=== PATIENT | male | born 1975 | race Caucasian/White ===

== ENCOUNTER → 2017-05-03 | Outpatient (CLI) | payer OTHER ==
--- NOTE | 2017-05-03 12:45 | XR ---
EXAMINATION TYPE: XR ribs LT DATE OF EXAM: 05/03/2017 COMPARISON: NONE HISTORY: Left lower posterior rib pain after fall injury 3 days ago. TECHNIQUE: A frontal and oblique images of the left-sided ribs are obtained FINDINGS: No acute displaced left-sided rib fractures are evident . Visualized left lung is clear. Ov erlying soft tissue is unremarkable. . IMPRESSION: No acute displaced left-sided rib fractures are seen.
== END ==
LOC: RADXRMAIN 12:13
PROVIDERS: ATTEND Family Medicine
DX: R07.81 Pleurodynia (principal)

== ENCOUNTER → 2018-04-27 | Outpatient (CLI) | payer OTHER ==
--- NOTE | 2018-04-28 08:06 | US ---
EXAMINATION TYPE: US carotid duplex BILAT DATE OF EXAM: 04/27/2018 COMPARISON: 12/05/15 carotid ultrasound. CLINICAL HISTORY: R09.89 Bruit Lt Carotid Artery. EXAM MEASUREMENTS: RIGHT: Peak Systolic Velocity (PSV) cm/sec ----- Right CCA: 108.8 ----- Right ICA: 96.8 ----- Right ECA: 128.8 ICA/CCA ratio: 0.9 RIGHT: End Diastole cm/sec ----- Right CCA: 14.2 ----- Right ICA: 29.9 ----- Right ECA: 22.7 LEFT: Peak Systolic Velocity (PSV) cm/sec ----- Left CCA: 149.6 ----- Left ICA: 108.1 ----- Left ECA: 96.9 ICA/CCA ratio: 0.7 LEFT: End Diastole cm/sec ----- Left CCA: 19.5 ----- Left ICA: 32.1 ----- Left ECA: 10.2 VERTEBRALS (direction of flow): Right Vertebral: Antegrade Left Vertebral: Antegrade Rhythm: Normal Grayscale images show no significant focal plaque at carotid bulb level bilaterally. There is more pr ominent increased peak systolic velocity left common carotid artery noted. A more proximal stenosis i s not excluded. IMPRESSION: No hemodynamically significant stenosis in either internal carotid artery. Cannot exclud e more proximal stenosis in the left common carotid artery. Consider CTA or MRA neck/chest follow-up.
== END | disposition home or self-care (01) ==
LOC: RADUSWWP 16:00
PROVIDERS: ATTEND Family Medicine
DX: R09.89 Other specified symptoms and signs involving the circulatory and respiratory systems (principal)
CPT/HCPCS: 93880

== ENCOUNTER → 2020-09-12 | Outpatient (CLI) | payer OTHER ==
[2020-09-12 14:48] LABS: Basophils # (A) 0.1 k/uL (0-0.2); Basophils % (A) 1 %; Eosinophils # (A) 0.2 k/uL (0-0.7); Eosinophils % (A) 3 %; HCT 46.2 % (39.0-53.0); HGB 15.5 gm/dL (13.0-17.5); Lymphocytes % (A) 34 %; MCH 31.2 pg (25.0-35.0); MCHC 33.5 g/dL (31.0-37.0); Monocytes # (A) 0.5 k/uL (0-1.0); Monocytes % (A) 8 %; Neutrophils # (A) 3.1 k/uL (1.3-7.7); Neutrophils % (A) 51 %; Platelet Count 305 k/uL (150-450); RBC 4.97 m/uL (4.30-5.90); RDW 12.5 % (11.5-15.5)
[2020-09-12 20:36] LABS: African American GFR (CKD) 105.6 (60.0-200.0); Albumin 4.5 g/dL (3.80-4.90); Albumin/Globulin Ratio 1.5 (1.60-3.17); Anion Gap 10.7 mmol/L (4.00-12.00); Calcium 9.7 mg/dL (8.7-10.3); Carbon Dioxide 27.3 mmol/L (21.6-31.8); Chol/HDL Ratio 4.16; Non-African American GFR(CKD) 91.1 (60.0-200.0); Potassium 4.1 mmol/L (3.5-5.5); Total Protein 7.5 g/dL (6.2-8.2)
== END | disposition home or self-care (01) ==
LOC: LABWHC1 14:15
PROVIDERS: ATTEND Family Medicine
DX: I10 Essential (primary) hypertension (principal); R00.0 Tachycardia, unspecified
CPT/HCPCS: 36415; 80053; 80061; 84443; 85025

== ENCOUNTER 2022-11-27 10:39 | Emergency (ER) | payer OTHER ==
[2022-11-27 10:45] VITALS: RESP 20; TEMP 98.4
--- NOTE | 2022-11-27 11:27 | ED ---
Skin/Abscess/FB HPI - General Chief complaint: Skin/Abscess/Foreign Body Stated complaint: cat bite - sent from urgent care Time Seen by Provider: 11/27/22 11:06 Source: patient, RN notes reviewed Mode of arrival: ambulatory Limitations: no limitations - History of Present Illness Initial comments: This is a 47-year-old male who presents to the emergency department for a cat bite. He was bitten by a cat approximately 2 weeks ago, and was first evaluated at urgent care. He was put on a ten-day course of 2 different antibiotics, which he just finished today. He cannot recall which antibiotics these were. He was reevaluated at urgent care, and found to have improvement in the redness and swelling of the entire hand, however he developed an abscess right below the middle finger. The provider there was concerned about an infectious tenosynovitis, and sent him to the emergency department for failed outpatient management. Patient states that this seems to have started draining today. It is painful to move the finger and to press on the area. Denies any fevers or chills. Denies any fevers, chills, sore throat, cough, dyspnea, chest pain, palpitations, abdominal pain, nausea, vomiting, diarrhea, back pain, or headaches. MD complaint: abscess/boil Location: R hand - Related Data Home Medications Medication Instructions Recorded Confirmed Losartan Potassium [Cozaar] 100 mg PO DAILY 11/27/22 11/27/22 Metoprolol Succinate (ER) [Toprol 25 mg PO DAILY 11/27/22 11/27/22 XL] amLODIPine [Norvasc] 10 mg PO DAILY 11/27/22 11/27/22 hydroCHLOROthiazide [Hydrodiuril] 25 mg PO DAILY 11/27/22 11/27/22 Previous Rx's Medication Instructions Recorded Amoxic-Pot Clav 875-125Mg 1 tab PO Q12HR 10 Days #20 tab 11/27/22 [Augmentin 875-125] Allergies Allergy/AdvReac Type Severity Reaction Status Date / Time No Known Allergies Allergy Verified 11/27/22 13:36 Review of Systems ROS Statement: Those systems with pertinent positive or pertinent negative responses have been documented in the HPI. ROS Other: All systems not noted in ROS Statement are negative. Past Medical History Past Medical History: Hypertension History of Any Multi-Drug Resistant Organisms: None Reported Past Surgical History: No Surgical Hx Reported Past Psychological History: No Psychological Hx Reported Smoking Status: Never smoker Past Alcohol Use History: Occasional Past Drug Use History: None Reported General Exam Limitations: no limitations General appearance: alert, in no apparent distress Head exam: Present: atraumatic, normocephalic, normal inspection Respiratory exam: Present: normal lung sounds bilaterally. Absent: respiratory distress, wheezes, rales, rhonchi, stridor Extremities exam: Present: other (Large palpable erythematous abscess over the right third MCP joint. Tenderness to palpation. Increased heat. There is a pinpoint area of minor purulence.) Neurological exam: Present: alert, oriented X3, CN II-XII intact Psychiatric exam: Present: normal affect, normal mood Course Vital Signs 11/27/22 11/27/22 10:42 15:00 Temperature 98.4 F 98.4 F Pulse Rate 87 80 Respiratory 20 20 Rate Blood Pressure 152/79 148/78 O2 Sat by Pulse 98 98 Oximetry Procedures - Incision & Drainage Consent Obtained: verbal consent Indication: abscess Site: hand Size (cm): 2 Anesthetic Used: lidocaine 1% Amount (mLs): 2 I&D Cleaning Method: Chloroprep Sterile Field Used?: Yes Scalpel Used: #11 Needle Aspiration Performed?: No Irrigation Performed?: No I&D Drainage Obtained: Pus, Blood Culture Obtained?: Yes Medical Decision Making - Medical Decision Making This is a 47-year-old male who presents to the emergency department for a cat bite to the right hand. Was pt. sent in by a medical professional or institution? @ -[facility] Did you speak to anyone other than the patient for history? @ -No Did you review nursing and triage notes? @ -Agree, accurate with regards to the patient's symptoms. Were old charts reviewed? @ -No Differential Diagnosis? @ -Abscess, cyst, trauma, fracture, this is not meant to be an all-inclusive list. X-rays interpreted by me (1pt min.)? @ -My interpretation of the x-ray of the right hand identifies no evidence of acute fractures. The radiologist does not note any subcutaneous gas. What testing was considered but not performed? (CT, X-rays, U/S, labs)? Why? @ -None What meds were considered but not given? Why? @ -I offered pain medication such as ibuprofen or Tylenol, however the patient declined. Did you discuss the management of the patient with other professionals? @ -No Did you reconcile home meds? @ -No Was smoking cessation discussed for >3mins.? @ -No Was critical care preformed (if so, how long)? @ -No Were there social determinants of health that impacted care today? How? (Homeles sness, low income, unemployed, alcoholism, drug addiction, transportation, low edu. Level, literacy, decrease access to med. care, alf, rehab)? @ -No Was there de-escalation of care discussed even if they declined? (Discuss DNR or withdrawal of care, Hospice)? @ -No What co-morbidities impacted this encounter? (DM, HTN, Smoking, COPD, CAD, Cancer, CVA, Hep., AIDS, mental health diagnosis, sleep apnea, morbid obesity)? @ -None Was patient admitted / discharged? @ -Discharged. X-ray of the right hand obtained with my interpretation listed above. I&D was performed on the abscess. There was minor purulence with largely sanguineous fluid removed. Cultures were obtained. Prescription for additional 10 day course of Augmentin provided. Instructed him to continue applying warm compresses and to work out additional drainage as he is able to. Advised ibuprofen and Tylenol as needed for pain relief. Drug Therapy requiring intensive monitoring for toxicity (Heparin, Nitro, Insulin, Cardizem)? @ -None Were any procedures done? @ -Yes, I&D on the abscess. Diagnosis/symptom? @ -Abscess Acute, or Chronic, or Acute on Chronic? @ -Acute Uncomplicated (without systemic symptoms) or Complicated (systemic symptoms)? @ -Uncomplicated Side effects of treatment? @ -Adverse effects to the antibiotics. Exacerbation, Progression, or Severe Exacerbation] @ -Not applicable Poses a threat to life or bodily function? @ -No Diagnosis/symptom? @ -Cat bite Acute, or Chronic, or Acute on Chronic? @ -Acute Uncomplicated (without systemic symptoms) or Complicated (systemic symptoms)? @ -Uncomplicated Side effects of treatment? @ -Adverse effects to the antibiotics. Exacerbation, Progression, or Severe Exacerbation] @ -Not applicable. Poses a threat to life or bodily function? @ -No. Return precautions reviewed in depth, the patient is instructed to return to the emergency department with any new, worsening, or concerning symptoms. Patient verbalized understanding. This case was discussed in detail with the attending ED physician. Presentation, findings, and treatment plan discussed in detail as well. - Lab Data Result diagrams: 11/27/22 12:15 11/27/22 12:15 Lab Results 11/27/22 11/27/22 11/27/22 Range/Units 12:15 12:15 12:15 WBC 7.3 (3.8-10.6) k/uL RBC 4.79 (4.30-5.90) m/uL Hgb 15.3 (13.0-17.5) gm/dL Hct 42.7 (39.0-53.0) % MCV 89.1 (80.0-100.0) fL MCH 31.9 (25.0-35.0) pg MCHC 35.8 (31.0-37.0) g/dL RDW 12.7 (11.5-15.5) % Plt Count 344 (150-450) k/uL MPV 7.6 Neutrophils % 70 % Lymphocytes % 15 % Monocytes % 8 % Eosinophils % 2 % Basophils % 1 % Neutrophils # 5.1 (1.3-7.7) k/uL Lymphocytes # 1.1 (1.0-4.8) k/uL Monocytes # 0.6 (0-1.0) k/uL Eosinophils # 0.2 (0-0.7) k/uL Basophils # 0.1 (0-0.2) k/uL ESR 19 H (0-15) mm/hr Sodium 138 (137-145) mmol/L Potassium 4.3 (3.5-5.1) mmol/L Chloride 102 (98-107) mmol/L Carbon Dioxide 26 (22-30) mmol/L Anion Gap 10 mmol/L BUN 17 (9-20) mg/dL Creatinine 0.93 (0.66-1.25) mg/dL Est GFR (CKD-EPI)AfAm >90 (>60 ml/min/1.73 sqM) Est GFR (CKD-EPI)NonAf >90 (>60 ml/min/1.73 sqM) Glucose 120 H (74-99) mg/dL Plasma Lactic Acid Phan 1.4 (0.7-2.0) mmol/L Calcium 9.2 (8.4-10.2) mg/dL Total Bilirubin 0.8 (0.2-1.3) mg/dL AST 35 (17-59) U/L ALT 45 (4-49) U/L Alkaline Phosphatase 79 (38-126) U/L C-Reactive Protein 0.7 (<1.0) mg/dL Total Protein 8.7 H (6.3-8.2) g/dL Albumin 4.8 (3.5-5.0) g/dL - Radiology Data Radiology results: report reviewed, image reviewed Disposition Clinical Impression: Cat bite, Abscess Disposition: HOME SELF-CARE Instructions (If sedation given, give patient instructions): Animal Bite (ED), Abscess (ED) Additional Instructions: Return to the emergency department with any new, worsening, or concerning symptoms. Take the antibiotic as prescribed for 10 days. Continue to apply warm compresses and work out any additional drainage. Follow up with your primary care provider in 1-2 days. Prescriptions: Amoxic-Pot Clav 875-125Mg [Augmentin 875-125] 1 tab PO Q12HR 10 Days #20 tab Is patient prescribed a controlled substance at d/c from ED?: No Referrals: None,Stated [Primary Care Provider] - 1-2 days
--- NOTE | 2022-11-27 12:07 | XR ---
EXAMINATION TYPE: XR hand complete RT DATE OF EXAM: 11/27/2022 11:35 AM INDICATION: Patient age:Male; 47 years old; Reason for study: Swelling; COMPARISON: None TECHNIQUE: Frontal, lateral and oblique views of the right hand were obtained. FINDINGS: Third digit demonstrates no evidence of radiopaque foreign body. No subcutaneous gas. Hyperdense foci seen along palmar surface of the second digit palmar suspicious for radiopaque foreign body. There i s a opaque dot and the second digit ulnar aspect near the proximal phalanx which is artifactual on al l images. Alignment of the visualized joints. No acute osseous pathology is identified. No evidence of soft tissue swelling. IMPRESSION: 1. No acute osseous pathology. 2. Third digit demonstrate no evidence is no evidence septations gas are or radiopaque foreign body. There are 3 hyperdense foci within the second digit palmar surface which could represent gas identif ied. No subcutaneous gas identified.
[2022-11-27 12:43] LABS: Basophils # (A) 0.1 k/uL (0-0.2); Basophils % (A) 1 %; Eosinophils # (A) 0.2 k/uL (0-0.7); Eosinophils % (A) 2 %; HCT 42.7 % (39.0-53.0); HGB 15.3 gm/dL (13.0-17.5); Lymphocytes # (A) 1.1 k/uL (1.0-4.8); Lymphocytes % (A) 15 %; MCH 31.9 pg (25.0-35.0); MCHC 35.8 g/dL (31.0-37.0); MCV 89.1 fL (80.0-100.0); Mean Platelet Volume 7.6; Monocytes # (A) 0.6 k/uL (0-1.0); Monocytes % (A) 8 %; Neutrophils # (A) 5.1 k/uL (1.3-7.7); Neutrophils % (A) 70 %; Platelet Count 344 k/uL (150-450); RBC 4.79 m/uL (4.30-5.90); RDW 12.7 % (11.5-15.5); WBC 7.3 k/uL (3.8-10.6)
[2022-11-27 13:04] LABS: ALT 45 U/L (4-49); AST 35 U/L (17-59); African American GFR (CKD) >90 (>60 ml/min/1.73 sqM); Albumin 4.8 g/dL (3.5-5.0); Alkaline Phosphatase 79 U/L (38-126); Anion Gap 10 mmol/L; Blood Urea Nitrogen 17 mg/dL (9-20); Calcium 9.2 mg/dL (8.4-10.2); Carbon Dioxide 26 mmol/L (22-30); Chloride 102 mmol/L (98-107); Glucose 120 mg/dL (74-99); Non-African American GFR(CKD) >90 (>60 ml/min/1.73 sqM); Potassium 4.3 mmol/L (3.5-5.1); Sodium 138 mmol/L (137-145); Total Bilirubin 0.8 mg/dL (0.2-1.3); Total Protein 8.7 g/dL (6.3-8.2)
[2022-11-27 13:35] LABS: C Reactive Protein 0.7 mg/dL (<1.0)
[2022-11-27] MEDS ORDERED: LIDOCAINE 1% INJ 10MG/ML (30 ML VIAL-PF) SQ ONE (13:37)
[2022-11-27 14:05] LABS: Erythrocyte Sedimentation Rate 19 mm/hr (0-15)
[2022-11-27 15:01] VITALS: BP 148/78; PULSE 80
== END 2022-11-27 15:00 | disposition home or self-care (01) ==
LOC: EC 10:39
DX: L02.511 Cutaneous abscess of right hand (principal); I10 Essential (primary) hypertension; Z79.899 Other long term (current) drug therapy; W55.01XA Bitten by cat, initial encounter
CPT/HCPCS: 36415; 80053; 85652; 83605; 85025; 86140; 87070; 87205; 84145; 73130; 99283; 10060; J2001

== ENCOUNTER → 2024-03-06 | Outpatient (CLI) | payer OTHER ==
[2024-03-06 16:16] LABS: Hepatitis A Antibody IgM Nonreactive (Nonreactive); Hepatitis B Core IgM Nonreactive (Nonreactive); Hepatitis B Surface Antigen Nonreactive (Nonreactive); Hepatitis C IgG Antibody Nonreactive (Nonreactive)
[2024-03-06 16:30] LABS: % Iron Saturation 23.57 (15.00-50.00); Ferritin 96.9 ng/mL (22.0-322.0)
== END | disposition home or self-care (01) ==
LOC: LABWHC1 12:55
PROVIDERS: ATTEND Family Medicine
DX: R74.01 Elevation of levels of liver transaminase levels (principal)
CPT/HCPCS: 36415; 80074; 82728; 82977; 83540; 83550

== ENCOUNTER → 2024-03-23 | Outpatient (CLI) | payer OTHER ==
--- NOTE | 2024-03-23 11:10 | US ---
EXAMINATION TYPE: US liver DATE OF EXAM: 03/23/2024 COMPARISON: NONE CLINICAL INDICATION: Male, 48 years old with history of R74.01 ELEVATION OF LEVELS OF LIVER TRANSAMIN ASE L; elevated labs x 2, no symptoms TECHNIQUE: Multiple sonographic images of the right upper quadrant are obtained. FINDINGS: EXAM MEASUREMENTS: Liver Length: 17.8 cm Gallbladder Wall: 0.2 cm CBD: 0.6 cm Right Kidney: 12.6 x 6.0 x 6.0 cm [employer] NOTES:intercostal liver imaging due to bowel gas Pancreas: not seen due to gas Liver: area of focal fatty sparring seen Gallbladder: wnl Evidence for sonographic Niño's sign: no CBD: wnl Right Kidney: wnl IMPRESSION: 1. Mild hepatomegaly with attenuating echotexture consistent with fatty infiltration. There is no foc al liver mass. 2. Limited evaluation of pancreas 3. Normal gallbladder. No biliary ductal dilatation.
== END | disposition home or self-care (01) ==
LOC: RADUSWWP 06:42
PROVIDERS: ATTEND Family Medicine
DX: R16.0 Hepatomegaly, not elsewhere classified (principal); R74.01 Elevation of levels of liver transaminase levels
CPT/HCPCS: 76705

== ENCOUNTER → 2024-10-02 | Outpatient (CLI) | payer OTHER ==
--- NOTE | 2024-10-02 17:41 | XR ---
EXAMINATION TYPE: XR foot complete LT DATE OF EXAM: 10/02/2024 COMPARISON: 01/10/2013 HISTORY: Pain left foot near heel intermittent, complains of plantar fasciitis TECHNIQUE: 3 view left foot FINDINGS: Tiny calcaneal heel spur is present. Plantar aspect of the foot appears normal. No acute fractures or dislocations evident. Joint spaces are preserved. Follow up exams can 7-10 days, continued pain IMPRESSION: 1. No acute osseous [facility], Workstation: [facility], 10/02/2024 5:39 PM
== END | disposition home or self-care (01) ==
LOC: RADXRMAIN 16:47
PROVIDERS: ATTEND Family Medicine
DX: M77.32 Calcaneal spur, left foot (principal)